=== PATIENT | female | born 1960 | race Caucasian/White ===

== ENCOUNTER 2025-04-19 12:44 | Emergency (ER) | payer MEDICARE, SELFPAY ==
[2025-04-19 12:44] VITALS: BP 159/91; PULSE 55; RESP 17; TEMP 36.5; O2SAT 100; BMI 17.6
--- NOTE | 2025-04-19 12:50 | ED_ITS ---
HPI - Abdominal Pain 2 General: Chief Complaint: Abdominal Pain Stated Complaint: abd pain Time Seen by Provider: 04/19/25 12:44 History of Present Illness: 65-year-old female who presents to the e mergency room with abdominal pain, nausea and vomiting. She says it started today at 8 AM this morning. Tenderness in the mid abdominal area. Does not appear to be focal. No fever. No altered mental status. Related Data Home Medications ?Medication ?Instructions ?Recorded ?Confirmed aspirin 81 mg tablet,delayed 81 mg PO DAILY 12/22/24 0 04/10/25 release (Adult Aspirin Regimen) atenolol 25 mg tablet 25 mg PO DAILY 12/22/2403/23 diphenoxylate-atropine 2.5 1 tab PO Q6H PRN 12/22/24 0 04/10/25 mg-0.025 mg tablet (Lomotil) hydrocodone 5 mg-acetaminophen 325 1 tab PO BID PRN 04/10/25 mg tablet ondansetron HCl 4 mg tablet 4 mg PO Q6H 12/22/2404/10 rosuvastatin 10 mg tablet (Crestor) 10 mg PO DAILY 09/1604/10/25 Previous Rx's ?Medication ?Instructions ?Recorded clindamycin HCl 300 mg capsule 300 mg PO TID 5 days #1 5 caps 12/22/24 (Cleocin HCl) triamcinolone acetonide 0.1 % 1 applic topical TID #30 grams 12/22/24 topical cream doxycycline hyclate 100 mg tablet 100 mg PO BID 10 day s #20 tabs 04/10/25 mupirocin 2 % topical ointment 1 applic topical BID #2 2 grams 04/10/25 (Centany) ondansetron 8 mg disintegrating 8 mg PO Q6H #14 tabs 0 04/19/25 tablet promethazine 25 mg rectal 25 mg GA Q6H PRN nausea and 04/19/25 suppository vomiting #12 ea Allergies Allergy/AdvReac Type Severity Reaction Status Date / Time sulfamethoxazole (From Allergy Nausea/vomi Verified 04/10/25 09:34 Bactrim) ting trimethoprim (From Bactrim) Allergy Nausea/vomi Verified 04/10/25 09:34 ting Review of Systems 2 Narrative: Constitutional symptoms: Negative except as documented in HPI. Skin symptoms: Negative except as documented in HPI. Eye symptoms: Negative except as documented in HPI. ENMT symptoms: Negative except as documented in HPI. Respiratory symptoms: Negative except as documented in HPI. Cardiovascular symptoms: Negative except as documented in HPI. Gastrointestinal symptoms: Negative except as documented in HPI. Genitourinary symptoms: Negative except as documented in HPI. Musculoskeletal symptoms: Negative except as documented in HPI. Neurologic symptoms: Negative except as documented in HPI. Psychiatric symptoms: Negative except as documented in HPI. Endocrine symptoms: Negative except as documented in HPI. PFSH ED 2 PFSH: Social History Smoking and tobacco/nicotine status: never used tobacco/nicotine Physical Exam 2 Narrative: EXAM NARRATIVE: General: Alert, no acute distress. Skin: Warm, dry. Head: Normocephalic, atraumatic. Neck: Supple, trachea midline. Eye: Extraocular movements are intact. Ears, nose, mouth and throat: mucosa moist. Cardiovascular: Regular, Normal peripheral perfusion. Respiratory: Lungs are clear to auscultation, respirations are non-labored, breath sounds are equal, Symmetrical chest wall expansion. Gastrointestinal: Soft, Nontender, Non distended Musculoskeletal: Normal ROM, no deformity. Neurological: Alert and oriented, No focal neurological deficit observed. Psychiatric: Cooperative, appropriate mood & affect. Course 2 Vital Signs: Vital signs: Vital Signs Temperature 97.7 F 04/19/25 12:44 Pulse Rate 56 L 04/19/25 14:37 Respiratory Rate 17 04/19/25 14:12 Blood Pressure 159/91 04/19/25 14:37 Pulse Oximetry 96 04/19/25 14:37 Oxygen Delivery Me thod Nasal Cannula 04/19/25 14:37 Oxygen Flow Rate 3 04/19/25 14:37 MDM - Abdominal Pain Medical Decision Making Medical decision making: Differential diagnosis for this patient with nausea and vomiting including but not limited to and based on the above HPI, review of systems and physical exam: Urinary tract infection. Appendicitis. Cholecystitis. Colitis. small bowel obstruction. crohn's flare. pancreatitis. gastritis. peptic ulcer. cyclic vomiting. Viral illness. Influenza. COVID. Orders placed to evaluate differential diagnosis based on the above differential, HPI and physical exam Lab Review: Laboratory results were reviewed and interpreted by myself the emergency room physician. Patient does have some leukocytosis with white count 16,000. No anemia. No renal failure. Urine is very concentrated. No signs of infection in the urine however. She is positive for opiates and marijuana. We did discuss that marijuana can cause a vomiting syndrome. CT of the abdomen pelvis: No acute findings. This was reviewed and interpreted by myself the emergency room physician. I also reviewed the radiology report. I reviewed the patient's medical record. Reexamination: Patient is feeling somewhat better now. No abdominal pain at this time. We discussed findings and she expresses understanding. No altered mental status. No increased work of breathing Assessment and plan: Nausea and vomiting Dehydration ? Normal saline bolus, IV Zofran, IV Compazine and Benadryl. - Discharged home - Discussed plan with patient. Answered any questions. - Evaluation and treatment of this problem were appropriate in the emergency setting. Lab Data 04/19/25 13:05 04/19/25 13:05 Labs/Radiology: Radiology Impressions Abdomen/Pelvis CT 04/19/25 13:55 IMPRESSION: No acute findings. Laboratory Results WBC 16.20 10^3/uL (3.29-11.43) H 04/19/25 13:05 RBC 5.08 10^6/uL (3.85-5.65) 04/19/25 13:05 Hgb 16.00 g/dL (11.27-16.99) 04/19/25 13:05 Hct 48.7 % (36-47) H 04/19/25 13:05 MCV 95.9 fl (85-98) 04/19/25 13:05 MCH 31.5 pg (27-33) 04/19/25 13:05 MCHC 32.9 g/dL (30-55) 04/19/25 13:05 RDW 12.4 % (12.1-15.1) 04/19/25 13:05 Plt Count 248 10^3/cmm (157-399) 04/19/25 13:05 MPV 11.7 fL (7.4-10.4) H 04/19/25 13:05 Neut % (Auto) 82.5 % 04/19/25 13:05 Lymph % (Auto) 10.5 % 04/19/25 13:05 [place] % (Auto) 3.2 % 04/19/25 13:05 Eos % (Auto) 2.7 % 04/19/25 13:05 Baso % (Auto) 0.7 % 04/19/25 13:05 Neut # (Auto) 13.35 10^3/uL (1.8-7.7) H 04/19/25 13:05 Lymph # (Auto) 1.7 10^3/uL (0.8-4.8) 04/19/25 13:05 [place] # (Auto) 0.5 10^3/uL (0.2-0.9) 04/19/25 13:05 Eos # (Auto) 0.4 10^3/uL (0.0-0.8) 04/19/25 13:05 Baso # (Auto) 0.1 10^3/uL (0.0-0.1) 04/19/25 13:05 Nucleated RBC % (auto) 0 % 04/19/25 13:05 Nucleated RBCs # 0.0 /100WBC 04/19/25 13:05 Sodium 137 mmol/L (136-145) 04/19/25 13:05 Potassium 4.2 mmol/L (3.5-5.1) 04/19/25 13:05 Chloride 98 mmol/L (98-107) 04/19/25 13:05 Carbon Dioxide 21 mmol/L (22-29) L 04/19/25 13:05 Anion Gap 22.2 (5-19) H 04/19/25 13:05 BUN 16 mg/dL (8-23) 04/19/25 13:05 Creatinine 0.7 mg/dL (0.5-0.9) 04/19/25 13:05 GFR Calculation 84.2 mL/min (90-130) L 04/19/25 13:05 Glucose 120 mg/dL (65-115) H 04/19/25 13:05 Calculated Osmolality 286 mOsm/kg (285-295) 04/19/25 13:05 Lactic Acid 2.7 mmol/L (0.5-2.2) H 04/19/25 13:05 Calcium 9.9 mg/dL (8.5-10.5) 04/19/25 13:05 Total Bilirubin 0.8 mg/dL (0.15-1.2) 04/19/25 13:05 AST 31 U/L (0-32) 04/19/25 13:05 ALT 17 U/L (0-33) 04/19/25 13:05 Alkaline Phosphatase 74 U/L (35-105) 04/19/25 13:05 Total Protein 8.4 g/dL (6.6-8.7) 04/19/25 13:05 Albumin 4.5 g/dL (3.5-5.2) 04/19/25 13:05 Globulin 3.9 g/dL (1.3-4.6) 04/19/25 13:05 Lipase 17 U/L (13-60) 04/19/25 13:05 Urine Color Yellow (Yellow) 04/19/25 15:01 Urine Appearance Clear (CLEAR) 04/19/25 15:01 Urine pH 5.5 (5-7) 04/19/25 15:01 Ur Specific [place] 1.073 (1.005-1.030) H 04/19/25 15:01 Urine Protein Trace (Negative) A 04/19/25 15:01 Urine Glucose (UA) Negative (Normal) 04/19/25 15:01 Urine Ketones 2+ (Negative) H 04/19/25 15:01 Urine Blood 2+ (Negative) A 04/19/25 15:01 Urine Nitrate Negative (Negative) 04/19/25 15:01 Urine Bilirubin Negative (Negative) 04/19/25 15:01 Urine Urobilinogen 0.2 mg/dL (Negative) 04/19/25 15:01 Ur Leukocyte Esterase Negative (Negative) 04/19/25 15:01 Urine RBC 21-50 /hpf (0-2) H 04/19/25 15:01 Urine WBC 0-5 /hpf (0-5) 04/19/25 15:01 Ur Squamous Epith Cells 0-5 /hpf (0-5) 04/19/25 15:01 Amorphous Sediment Not Reportable 04/19/25 15:01 Urine Bacteria None seen /hpf (NONE) 04/19/25 15:01 Hyaline Casts 0-4 /lpf H 04/19/25 15:01 Urine Opiates Screen Positive ng/mL (Negative) H 04/19/25 15:01 Ur Barbiturates Screen Negative ng/mL (Negative) 04/19/25 15:01 Ur Phencyclidine Scrn Negative ng/mL (Negative) 04/19/25 15:01 Ur Amphetamines Screen Negative ng/mL (Negative) 04/19/25 15:01 U Benzodiazepines Scrn Negative ng/mL (Negative) 04/19/25 15:01 Urine Cocaine Screen Negative ng/mL (Negative) 04/19/25 15:01 U Marijuana (THC) Screen Positive ng/mL (Negative) H 04/19/25 15:01 Influenza A (PCR) Negative (Negative) 04/19/25 13:00 Influenza Type B (PCR) Negative (Negative) 04/19/25 13:00 RSV (PCR) Negative (Negative) 04/19/25 13:00 SARS-CoV-2 (PCR) Negative (Negative) 04/19/25 13:00 All radiology interpretation(s) finalized by discharge Discharge Plan Discharge Patient Disposition: Home Clinical Impression: Nausea & vomiting, Dehydration Condition: Stable Prescriptions: New promethazine 25 mg suppository 25 mg GA Q6H PRN (Reason: nausea and vomiting) Qty: 12 0RF ondansetron 8 mg tablet,disintegrating 8 mg PO Q6H Qty: 14 0RF Rx Instructions: Take 1/2-1 tab every 6 hours as needed for nausea and vomiting No Action rosuvastatin [Crestor] 10 mg tablet 10 mg PO DAILY hydrocodone-acetaminophen 5-325 mg tablet 1 tab PO BID PRN ondansetron HCl 4 mg tablet 4 mg PO Q6H atenolol 25 mg tablet 25 mg PO DAILY diphenoxylate-atropine [Lomotil] 2.5-0.025 mg tablet 1 tab PO Q6H PRN aspirin [Adult Aspirin Regimen] 81 mg tablet,delayed release (DR/EC) 81 mg PO DAILY clindamycin HCl [Cleocin HCl] 300 mg capsule 300 mg PO TID 5 Days Qty: 15 0RF triamcinolone acetonide 0.1 % cream 1 applic topical TID Qty: 30 0RF mupirocin [Centany] 2 % ointment 1 applic topical BID Qty: 22 1RF doxycycline hyclate 100 mg tablet 100 mg PO BID 10 Days Qty: 20 0RF Discharge Orders: Discharge ED (Routine); Ordered 04/19/25 Ordered By: Samantha Kirkland Discharge Diet: Advance as tolerated Discharge Activity: Increase activity as tolerated Patient Instructions: Acute Nausea and Vomiting (ED), Opioid Safety, Pain Management, Patient Portal & Lily Instructions Activity Restrictions/Additional Instructions: Thank you for choosing [facility] for your healthcare needs today. You have been screened and evaluated and felt safe for discharge. Health conditions do change or evolve sometimes and as such it is important that you follow up with your Primary Doctor to be re checked, 3-5 days is a general good time frame for follow up. 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
[2025-04-19 13:13] LABS: Hematocrit 48.7 % (36-47); Hemoglobin 16.00 g/dL (11.27-16.99); Mean Corpuscular HGB Conc 32.9 g/dL (30-55); Mean Corpuscular Hemoglobin 31.5 pg (27-33); Mean Corpuscular Volume 95.9 fl (85-98); Nucleated Red Blood Cells % 0 %; Platelet Count 248 10^3/cmm (157-399); Red Blood Count 5.08 10^6/uL (3.85-5.65); White Blood Count 16.20 10^3/uL (3.29-11.43)
[2025-04-19 13:38] LABS: Alanine Aminotransferase 17 U/L (0-33); Albumin Level 4.5 g/dL (3.5-5.2); Alkaline Phosphatase 74 U/L (35-105); Aspartate Amino Transferase 31 U/L (0-32); Blood Urea Nitrogen 16 mg/dL (8-23); Calcium 9.9 mg/dL (8.5-10.5); Carbon Dioxide 21 mmol/L (22-29); Chloride 98 mmol/L (98-107); Creatinine Clr Calc Pharmacy 63.5536; Globulin 3.9 g/dL (1.3-4.6); Glucose 120 mg/dL (65-115); Lactic Sepsis W/Reflex 2.7 mmol/L (0.5-2.2); Lipase 17 U/L (13-60); Osmolality Calculated 286 mOsm/kg (285-295); Sodium 137 mmol/L (136-145); Total Protein 8.4 g/dL (6.6-8.7)
[2025-04-19 13:39] LABS: Anion Gap 22.2 (5-19); Potassium 4.2 mmol/L (3.5-5.1)
[2025-04-19 13:46] LABS: Respiratory Syncytial Virus Ce NEGATIVE (Negative); SARS-CoV-2 PCR NEGATIVE (Negative)
--- NOTE | 2025-04-19 13:55 | CTR_ITS ---
PROCEDURE INFORMATION: Exam: CT Abdomen And Pelvis With Contrast Exam date and time: 04/19/2025 2:04 PM Age: 65 years old Clinical indication: Abdominal pain; Epigastric TECHNIQUE: Imaging protocol: Computed tomography of the abdomen and pelvis with contrast. Radiation optimization: All CT scans at this facility use at least one of these dose optimization techniques: automated exposure control; mA and/or kV adjustment per patient size (includes targeted exams where dose is matched to clinical indication); or iterative reconstruction. Contrast material: OMNI 350; Contrast volume: 80 ml; Contrast route: INTRAVENOUS (IV); COMPARISON: No relevant prior studies available. RADIATION DOSE METRICS: Total DLP (mGy-cm): 297.83 FINDINGS: Liver: Normal. No mass. Gallbladder and biliary ducts: Normal. No calcified stones. No ductal dilation. Pancreas: Normal. No ductal dilation. Spleen: Normal. No splenomegaly. Adrenal glands: Normal. No mass. Kidneys and ureters: Normal. No hydronephrosis. Stomach and bowel: Unremarkable. No obstruction. No mucosal thickening. Appendix: No evidence of appendicitis. Intraperitoneal space: Unremarkable. No free air. No significant fluid collection. Vasculature: Unremarkable. No abdominal aortic aneurysm. Lymph nodes: Unremarkable. No enlarged lymph nodes. Urinary bladder: Unremarkable as visualized. Reproductive: Hysterectomy. Bones/joints: Unremarkable. No acute fracture. Soft tissues: Unremarkable. CT/CT abdomen pelvis w con* [id number] IMPRESSION: No acute findings.
[2025-04-19] MEDS: iohexol 350 mg/mL 500 mL Btl (per mL) IV (14:07)
[2025-04-19 14:12] VITALS: RESP 17; O2SAT 93
[2025-04-19] MEDS: morphine 4 mg/mL SDV 1 mL IVP (14:12)
[2025-04-19] MEDS: ondansetron 2 mg/ML SDV 2 mL 8 MG IVP (14:13)
[2025-04-19 14:37] VITALS: BP 159/91; PULSE 56; O2SAT 96
[2025-04-19 14:58] LABS: Reflex Lactate Order REFLEX LACTIC ORDERD
[2025-04-19 15:08] LABS: Glucose Urine UA Negative (Normal); Nitrate Urine Negative (Negative)
[2025-04-19 15:11] LABS: Specific Gravity, Urine 1.073 (1.005-1.030)
[2025-04-19 15:15] LABS: PCP Screen Urine Negative (Negative)
[2025-04-19] MEDS: diphenhydrAMINE 50 mg/mL SDV 1mL IVP (15:34)
== END 2025-04-19 16:49 | disposition home or self-care (01) ==
PROVIDERS: Emergency Provider Emergency Medicine
DX: R11.2 Nausea with vomiting, unspecified (principal); E86.0 Dehydration; Z79.82 Long term (current) use of aspirin; Z11.52 Encounter for screening for COVID-19
CPT/HCPCS: 36415; 74177; 80053; 80306; 81001; 83605; 83690; 85025; 87040; 87086; 87637; 96361; 96374; 96375; 99285; J0780; J1200; J2270; J2405; J7030